=== PATIENT | female | born 1955 | race Caucasian/White ===

== ENCOUNTER → 2020-12-19 11:12 | Outpatient (BNVA) | payer BC, SELFPAY | PROVIDERS: Visit Provider Nurse Practitioner Family | DX: J06.9 Acute upper respiratory infection, unspecified (principal); R53.83 Other fatigue; R06.02 Shortness of breath; R05.9 Cough, unspecified; J40 Bronchitis, not specified as acute or chronic; Z20.822 Contact with and (suspected) exposure to COVID-19 | CPT/HCPCS: 80053; 85025; 87635 ==